=== PATIENT | male | born 1970 | race African-American/Black ===

== ENCOUNTER 2022-12-25 08:04 | Day surgery (SDC) | payer OTHER ==
[~2022-12-25] VITALS: Ht 177.8 cm; Wt 88.0 kg
[2022-12-25] MEDS ORDERED: fentaNYL citrate 0.05 MG/ML VIAL ONE (09:18)
[2022-12-25] MEDS ORDERED: MIDAZOLAM 5 MG/5 ML VIAL ONE (09:18)
[2022-12-25] MEDS ORDERED: LIDOCAINE 2% 100 MG/5 ML UJET TP ONE (09:19)
[2022-12-25] MEDS ORDERED: fentaNYL citrate 0.05 MG/ML VIAL IVP ONE (13:25)
== END 2022-12-25 11:23 | disposition home or self-care (01) ==
LOC: MOR 08:04 → MMU 08:07 → MOR 11:23
PROVIDERS: ATTEND Internal Medicine Gastroenterology
DX: Z12.11 Encounter for screening for malignant neoplasm of colon (principal); I10 Essential (primary) hypertension; Z79.899 Other long term (current) drug therapy
CPT/HCPCS: 45378; J3010; J2250